=== PATIENT | female | born 1985 | race Caucasian/White ===

== ENCOUNTER 2017-12-10 15:12 | Emergency (ER) | payer OTHER ==
[2017-12-10 15:27] VITALS: BP 93/64; PULSE 81; TEMP 97.9; BMI 37.6
--- NOTE | 2017-12-10 15:27 | PDOC ---
Rapid Medical Evaluation Time Seen by Provider: 12/10/17 15:23 Medical Evaluation: 12/10/17 15:24 I have performed a brief in-person evaluation of this patient. The patient presents with a chief complaint of: lower back pain x2 days Pertinent physical exam findings: L CVAT I have ordered the following: ua, upreg, u cx The patient will proceed to the ED for further evaluation. Discharge Disposition - Diagnosis Back pain - Referrals - Patient Instructions - Post Discharge Activity
[2017-12-10] MEDS ORDERED: IBUPROFEN 400 MG TABLET (FP) PO ONE ×2 (15:48→15:50)
[2017-12-10] MEDS ORDERED: CYCLOBENZAPRINE HCL 10 MG TABLET (FP) PO ONE (15:48)
[2017-12-10] MEDS ORDERED: CYCLOBENZAPRINE HCL 10 MG TABLET (FP) ONE (15:50)
--- NOTE | 2017-12-10 15:53 | PDOC ---
History of Present Illness - General Chief Complaint: Back Pain Stated Complaint: BACK PAIN Time Seen by Provider: 12/10/17 15:23 History Source: Patient - History of Present Illness Occurred: reports: other Pain Location: reports: back Past History - Past Medical History Allergies/Adverse Reactions: Allergies Allergy/AdvReac Type Severity Reaction Status Date / Time No Known Allergies Allergy Verified 12/10/17 15:24 Home Medications: Ambulatory Orders Cyclobenzaprine HCl [Flexeril -] 10 mg PO TID #9 tablet 12/10/17 Ibuprofen [Motrin -] 2 tab PO Q6H #30 tablet 12/10/17 COPD: No Seizures: Yes - Suicide/Smoking/Psychosocial Hx Smoking History: Never smoked Review of Systems - Review of Systems Constitutional: No: Chills, Fever ABD/GI: No: Nausea, Vomiting, Abdominal cramping : No: Burning, Dysuria, Flank Pain, Hematuria Musculoskeletal: Yes: Back Pain. No: Muscle Weakness *Physical Exam - Vital Signs Last Vital Signs Temp Pulse Resp BP Pulse Ox 97.9 F 81 18 93/64 98 12/10/17 15:24 12/10/17 15:24 12/10/17 15:24 12/10/17 15:24 12/10/17 15:24 - Physical Exam General Appearance: Yes: Appropriately Dressed. No: Apparent Distress HEENT: positive: Normal Voice Neck: positive: Supple Respiratory/Chest: negative: Respiratory Distress Gastrointestinal/Abdominal: positive: Soft. negative: Tender Musculoskeletal: positive: Vertebral Tenderness (to mid lower pain w/ pain to site w/ forward bending). negative: CVA Tenderness Extremity: positive: Normal Inspection Integumentary: positive: Dry, Warm Neurologic: positive: Fully Oriented, Alert, Normal Mood/Affect Medical Decision Making - Medical Decision Making 12/10/17 15:48 32-year-old female, no significant history, here with lower back pain x 4 days. 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 Pain sharp, localized to lower back, does not radiate and worse with certain movements. Taking Tylenol with no significant relief. Denies nausea, vomiting, fever, chills, dysuria or hematuria. See exam LBP M/l MSK BP 93/64, pt reports running low at baseline, no dizziness or weakness at this time -dc w/ pain control *DC/Admit/Observation/Transfer Diagnosis at time of Disposition: Back pain Qualifiers: Back pain location: low back pain Chronicity: acute Back pain laterality: unspecified Sciatica presence: without sciatica Qualified Code(s): M54.5 - Low back pain - Discharge Dispostion Condition at time of disposition: Improved - Prescriptions Prescriptions: Cyclobenzaprine HCl [Flexeril -] 10 mg PO TID #9 tablet Ibuprofen [Motrin -] 2 tab PO Q6H #30 tablet - Referrals Referrals: ON STAFF,NOT [Primary Care Provider] - - Patient Instructions Printed Discharge Instructions: Low Back Pain Additional Instructions: The cause of your back pain is most likely muscular. Take medication as directed. If pain persists after 2 weeks, please follow-up with your primary care physician for further evaluation - Post Discharge Activity Forms/Work/School Notes: Back to Work
[2017-12-10 16:39] LABS: URINE APPEARANCE CLEAR; URINE BILIRUBIN NEGATIVE (<2.0 mg/dL); URINE BLOOD NEGATIVE (NEGATIVE); URINE COLOR YELLOW; URINE GLUCOSE (UA) NEGATIVE (NEGATIVE); URINE KETONE TRACE (NEGATIVE); URINE NITRITE NEGATIVE (NEGATIVE); URINE PROTEIN NEGATIVE (NEGATIVE); URINE UROBILINOGEN NEGATIVE mg/dL (0.2-1.0)
[2017-12-10 16:41] LABS: HCG,QUALITATIVE URINE NEGATIVE
[2017-12-10 17:08] LABS: URINE LEUK ESTERASE 1+ (NEGATIVE)
[2017-12-10 17:11] LABS: EPI CELLS FEW /HPF (FEW); URINE BACTERIA RARE /hpf (NONE SEEN); URINE MUCUS RARE
== END 2017-12-10 16:22 | disposition home or self-care (01) ==
LOC: JERFT 15:12
DX: M54.5 Low back pain (principal)
CPT/HCPCS: 81003; 81015; 84703; 87086; 99281-25